=== PATIENT | female | born 1940 | race Caucasian/White ===

== ENCOUNTER → 2016-10-22 | Outpatient (REF) | payer MEDICARE ==
[~2016-10-22] MED LIST: ALLO100T PO; ASPI-860 PO; ATOR10TA PO; CALC500T47 PO; CHLO500T2 PO; CHOL200014 PO; CINN500C14 PO; CYCL10TA45; FLUT16SP NSEACH; GABA300C PO; GLIM2TAB PO; HYDR-3702 PO; HYDR-3811 PO; LOSA1TAB69 PO; MEDR10TA PO; METF-473 PO; METF500T4 PO; NAPR500T3 PO; OXYC1TAB87 PO; POTA2TAB15 PO; VIT1TABL26 PO
[2016-10-22 12:50] LABS: BASOPHILS % (AUTO) 1 % (0-2); EOSINOPHILS # (AUTO) 0.4 10^3uL; EOSINOPHILS % (AUTO) 5 % (0-4); LYMPHOCYTES # (AUTO) 2.7 X10^3; MEAN CORPUSCULAR HEMOGLOBIN 29.3 PG (26.0-34.0); MEAN CORPUSCULAR HGB CONC 33.1 g/dL (31.0-37.0); MEAN CORPUSCULAR VOLUME 89 FL (80-100); MEAN PLATELET VOLUME 10.5 FL (6.0-9.5); MONOCYTES # (AUTO) 0.5 X10^3; MONOCYTES % (AUTO) 6 % (3-11); NEUTROPHILS # (AUTO) 5.1 X10^3; NEUTROPHILS % (AUTO) 58 % (51-67); PLATELET COUNT 243 10^3uL (150-450); WHITE BLOOD COUNT 8.82 10^3uL (4.0-11.0)
[2016-10-22 13:03] LABS: ANION GAP 19.6 MEQ/L (3-15); MAGNESIUM* 1.4 mg/dL (1.6-2.3)
[2016-10-23 13:55] LABS: IRON 68 ug/dL (50-170)
[2016-10-23 14:16] LABS: VITAMIN B 12 262 pg/mL (213-816)
== END ==
LOC: LAB 12:30
PROVIDERS: ATTEND Nurse Practitioner Family
DX: I10 Essential (primary) hypertension (principal); E11.9 Type 2 diabetes mellitus without complications; R25.2 Cramp and spasm; D64.9 Anemia, unspecified
CPT/HCPCS: 80048; 82607; 82728; 83036; 83540; 83735; 85025